=== PATIENT | male | born 2000 | race Caucasian/White ===

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

== ENCOUNTER → 2021-01-11 | Outpatient (REF) | payer OTHER ==
[2021-01-11 12:08] LABS: APPEARANCE, URINE CLEAR (CLEAR); BACTERIA, URINE AUTO NEGATIVE (NEGATIVE); BILIRUBIN, URINE AUTO NEGATIVE (NEGATIVE); BLOOD, URINE BLOOD NEGATIVE (NEGATIVE); COLOR, URINE YELLOW (YELLOW); GLUCOSE, URINE (UA) AUTO NEGATIVE (NEGATIVE); KETONE, URINE AUTO NEGATIVE (NEGATIVE); LEUKOCYTE ESTERASE, URINE AUTO NEGATIVE (NEGATIVE); MUCUS, URINE SMALL (NEGATIVE); NITRITE, URINE AUTO NEGATIVE (NEGATIVE); PROTEIN, URINE AUTO NEGATIVE (NEGATIVE); RBC, URINE AUTO 1 /HPF (0-3); SPECIFIC GRAVITY URINE AUTO 1.027 (1.002-1.035); SQUAMOUS EPITHELIAL CELL UR AU 0 /HPF (0-6); UROBILINOGEN, URINE AUTO 0.2 mg/dL (0.0-2.0); WBC, URINE AUTO 1 /HPF (0-3)
== END ==
LOC: M SMT 11:12
PROVIDERS: ATTEND Nurse Practitioner Family
DX: N50.819 Testicular pain, unspecified (principal)

== ENCOUNTER 2021-03-17 13:58 | Emergency (ER) | payer OTHER ==
[~2021-03-17] VITALS: Ht 188 cm; Wt 109.1 kg
[2021-03-17 13:59] VITALS: BP 131/77
--- NOTE | 2021-03-17 14:29 | REP ---
INDICATION: pain and swelling after tripping over root TECHNIQUE: Five views FINDINGS: The compartments are symmetric and relatively well maintained. There is no acute fracture or destructive osseous lesion. IMPRESSION: As above <Electronically signed by Henri Avila > 03/17/21 [id number]
== END 2021-03-17 15:11 | disposition home or self-care (01) ==
LOC: M ED 13:58
DX: M23.91 Unspecified internal derangement of right knee (principal)

== ENCOUNTER → 2021-04-05 | Outpatient (CLI) | payer OTHER ==
--- NOTE | 2021-04-05 15:03 | REP ---
INDICATION: HEMARTHROSIS/POSS OSTEOCHONDRAL INJ/SUBCHONDRAL FX. COMPARISON: None. TECHNIQUE: Sagittal spin-echo proton density, T2 STIR and T2 FLASH. Coronal spin-echo proton density and fat suppressed proton density. Axial fat suppressed proton density. FINDINGS: The anterior and posterior horns of the lateral meniscus are within normal limits. The anterior and posterior horns of the medial meniscus are within normal limits. The anterior and posterior cruciate ligaments are intact. The quadriceps and patellar tendons are intact. The medial and lateral collateral ligaments are intact. The medial and lateral patellar retinacula are intact. There is evidence of thickening and T2 hyper signal within the medial patellar retinaculum. There is a joint effusion with parapatellar plica and evidence of synovial hypertrophic change. The effusion is somewhat complex in appearance. There is T2 hyper signal in the lateral femoral condyle laterally and in the medial aspect of the patella. The articular cartilages are within normal limits. There is a tiny Garza's cyst. IMPRESSION: 1. There is lateral femoral condylar and medial patellar marrow edema seen in conjunction with thickening and T2 hyper signal with in an intact appearing medial patellar retinaculum. These findings suggest recent lateral patellar dislocation which is now in the reduced position. This is seen without evidence of a definite fracture bony or chondral. 2. Complex appearing joint effusion with plica as described above there is no layering effect from an acute hemarthrosis. Old hemarthrosis with possible resorption cannot be ruled out. 3. Other findings as described above. <Electronically signed by Henri Avila > 04/05/21 [id number]
== END ==
LOC: M PLARAD 11:28
PROVIDERS: ATTEND Orthopaedic Surgery Adult Reconstructive Orthopaedic Surgery
DX: S83.001A Unspecified subluxation of right patella, initial encounter (principal); W18.30XA Fall on same level, unspecified, initial encounter; Y92.009 Unspecified place in unspecified non-institutional (private) residence as the place of occurrence of the external cause